=== PATIENT | female | born 1965 | race Caucasian/White ===

== ENCOUNTER → 2016-07-14 | Outpatient (CLI) | payer OTHER | END | disposition home or self-care (01) | LOC: KCIC MAMMO 11:04 | DX: Z12.31 Encounter for screening mammogram for malignant neoplasm of breast (principal) | CPT/HCPCS: G0202; 77067 ==

== ENCOUNTER → 2016-07-14 | Outpatient (CLI) | payer OTHER ==
--- NOTE | 2016-07-14 12:20 | KCIC ---
PROCEDURE Two view chest radiograph. HISTORY Chronic cough, multiple courses of antibiotics prescribed. TECHNIQUE Two-view chest radiograph was obtained. COMPARISON None. FINDINGS The lungs are clear. The cardiopulmonary silhouette is within normal limits. There is no pleural effusion. Bony structures are intact. IMPRESSION No acute thoracic findings. Electronically signed by: Justin Mtz MD (Jul 14, 2016 12:18:38)
--- NOTE | 2016-07-14 12:24 | KCIC ---
PROCEDURE Sinus series. HISTORY Chronic sinusitis. Multiple rounds of antibiotics. TECHNIQUE Sinus series contains 3 images. COMPARISON None. FINDINGS No air-fluid level or definite wall sclerosis in the paranasal sinuses is apparent. Mild mucosal thickening in the left maxillary sinus is suspected. Postsurgical changes are noted in the right orbit. IMPRESSION Questionable mild mucosal thickening in the left maxillary sinus. Electronically signed by: Justin Mtz MD (Jul 14, 2016 12:23:50)
== END | disposition home or self-care (01) ==
LOC: KCIC 11:11
PROVIDERS: ATTEND Family Medicine
DX: J32.8 Other chronic sinusitis (principal); R05 Cough
CPT/HCPCS: 70220; 71020

== ENCOUNTER → 2016-07-26 | Outpatient (CLI) | payer OTHER ==
--- NOTE | 2016-07-26 15:54 | RAD ---
Ultrasound of the left breast 07/26/2016 Clinical history: Small nodular density seen in the left breast on a recent screening mammogram. Further evaluation with ultrasound was recommended. Technique: A Real-time ultrasound examination of the left breast at the 2:00 and 3:00 position was performed. Multiple images were obtained. Findings: Comparison is made to patient's mammogram dated 07/14/2016. A Left breast implant is again noted. No solid or cystic mass seen within the visualized portions of the left breast by ultrasound. The nodular density seen on the patient's mammogram does not have sonographic correlate. A repeat diagnostic mammogram of the left breast in 6 months is recommended to its document stability. Impression: No solid or cystic mass is seen within the visualized portions of the left breast by ultrasound. I would recharacterize the patient's mammogram as a BI-RADS Category 3 probably benign finding with a recommendation for a diagnostic mammogram of the left breast in 6 months to document stability of the small nodular area as outlined above. Patient information was entered into the reminder system with a target date for a mammogram of the left breast on January 25, 2017.
== END | disposition home or self-care (01) ==
LOC: KCIC US 15:33
PROVIDERS: ATTEND Specialist
DX: R92.8 Other abnormal and inconclusive findings on diagnostic imaging of breast (principal)
CPT/HCPCS: 76641

== ENCOUNTER → 2017-11-03 | Outpatient (CLI) | payer OTHER | END | disposition home or self-care (01) | LOC: KCIC DEXA 07:45 | DX: Z13.820 Encounter for screening for osteoporosis (principal); R92.8 Other abnormal and inconclusive findings on diagnostic imaging of breast; Z79.890 Hormone replacement therapy; Z78.0 Asymptomatic menopausal state | CPT/HCPCS: 77066; 77080; G0279 ==

== ENCOUNTER → 2017-12-29 | Outpatient (CLI) | payer OTHER ==
--- NOTE | 2017-12-29 13:01 | KCIC ---
EXAM: Cervical spine, 5 views; thoracic spine, 2 views; lumbar spine, 5 views. HISTORY: Pain. COMPARISON: None. FINDINGS: Cervical spine: Frontal, lateral, bilateral oblique, odontoid and flexion and extension views of the cervical spine are obtained. There is slight reversal of cervical lordosis at the upper mid cervical levels. There is minimal anterior endplate spurring at C5-C6. The vertebral bodies are normal in height and the disc spaces are preserved. There is slight facet arthropathy predominantly at the lower cervical levels. There is no abnormal motion between flexion and extension. Thoracic spine: 2 views of the thoracic spine are obtained. There is no listhesis. The vertebral bodies are normal in height and the disc spaces are preserved. There is no segmentation anomaly. Lumbar spine: Frontal, lateral, bilateral oblique and coned sacral views of the lumbar spine are obtained. There is degenerative endplate remodeling with disc space narrowing and facet arthropathy at L5-S1. There is minimal endplate remodeling at the remainder of the lumbar levels. There is minimal levocurvature centered at the thoracolumbar junction. There is a calcification within the abdomen measuring 1.3 cm to the right of midline. IMPRESSION: 1. No acute osseous finding. 2. Degenerative change involving the lumbar spine, primarily at L5-S1. 3. Degenerative change involving the cervical spine, primarily at C5-C6. Electronically signed by: Lory Burger MD (12/29/2017 12:58 PM) [place] [id number]
== END | disposition home or self-care (01) ==
LOC: KCIC 10:03
DX: M47.897 Other spondylosis, lumbosacral region (principal); M47.892 Other spondylosis, cervical region; M48.07 Spinal stenosis, lumbosacral region; M12.88 Other specific arthropathies, not elsewhere classified, other specified site
CPT/HCPCS: 72052; 72072; 72110

== ENCOUNTER 2018-10-19 10:24 | Day surgery (SDC) | payer OTHER ==
[~2018-10-19 10:24] MED LIST: ALPR0.5T PO; DICL75TA PO; ESTR1PAT31 TD; HYDROmorphone 2 MG/ML VIAL IV PRN; IV RINGERS,LACTATED 1000ML 1,000 ML IV SCH; LEVO137T3 PO; LIDOCAINE 1% PF 2 ML VIAL. ID PRN; LIDOCAINE WITH 8.4% SOD BICARB 3 ML DISP.SYRIN. INJ ONE; MORPHINE SULFATE 2 MG/ML VIAL. IV PRN; ONDANSETRON PF 4 MG/2 ML VIAL. IV PRN; PROCHLORPERAZINE 10 MG/2 ML VIAL. IV PRN; fentaNYL PF VIAL 100 MCG/2 ML VIAL IV PRN
[2018-10-19] MEDS ORDERED: BUPIVAC MPF-EPI 0.5%-1:200000 30 ML VIAL. ONE (13:06)
[2018-10-19] MEDS ORDERED: BUPIVACAINE MPF 0.5% 30 ML VIAL. ONE (13:36)
[2018-10-19] MEDS ORDERED: ISOSULFAN BLUE 50 MG/5 ML VIAL. SQ ONE ×2 (13:41→14:45)
--- NOTE | 2018-10-19 14:29 | RAD ---
Examination: SENTINEL NODE INJECTION History: Melanoma involving the skin overlying the right hip Comparison/Correlation: None Findings: Cleansing with Betadine swabs was performed about the melanoma lesion involving the skin overlying the right hip. A total of 1 mCi technetium 99m sulfur colloid in 4 nearly equal portions was administered intradermally at the 12:00, 3:00, 6:00, 9:00 positions about the melanoma lesion. Patient tolerated the procedure well without immediate comp occasions. Impression: Intradermal administration of technetium 99 M sulfur colloid about the melanoma lesion. Electronically signed by: Dell Saleh MD (10/19/2018 2:26 PM) [facility]
[2018-10-19] MEDS ORDERED: MIDAZOLAM HCL/PF 2 MG/2 ML VIAL. ONE (14:44)
[2018-10-19] MEDS ORDERED: fentaNYL PF VIAL 100 MCG/2 ML VIAL ONE (14:44)
[2018-10-19] MEDS ORDERED: LIDOCAINE 2% PF 5 ML VIAL. ONE (14:59)
[2018-10-19] MEDS ORDERED: ONDANSETRON PF 4 MG/2 ML VIAL. ONE (14:59)
[2018-10-19] MEDS ORDERED: DEXAMETHASONE SOD PHOS 20 MG/5 ML VIAL. ONE (14:59)
[2018-10-19] MEDS ORDERED: PROPOFOL 40 ML IV ONE (14:59)
[2018-10-19] MEDS ORDERED: BUPIVACAINE MPF 0.5% 30 ML VIAL. IJ ONE (14:59)
[2018-10-19] MEDS ORDERED: SEVOFLURANE 61 TO 120 MINUTES. IH ONE (15:30)
--- NOTE | 2018-10-19 16:00 | DISCH ---
DISCHARGE INSTRUCTIONS Condition on Discharge Condition on Discharge: Stable Activity After Discharge Activity Instructions for Disc: Activity as tolerated, Avoid exertion Driving Instructions after Dis: Do not drive today Diet after Discharge Diet after Discharge: Regular Wound Incision Care Wound/Incision Care: Ice to area for comfort Other wound/incision instructi: jaden shower Monday Follow-Up Follow Up With: Jb ten days SARAH ROBERTS MD Oct 19, 2018 16:00
--- NOTE | 2018-10-19 16:06 | PDOC ---
BRIEF OPERATIVE NOTE Date: Oct 19, 2018 Pre-Op Diagnosis melanoma right thigh Post-Op Diagnosis same Procedure Performed wide excision with SLN biopsy Surgeon Jb Anesthesia Type: General (LMA) Blood Loss 5cc IV Fluid 1000cc Specimens Obtained left inguinal sentinel lymph node skin and subcutaneous tissue right upper thigh 12x4x2 cm Findings negative SLN Complications none Operative Note Wk # [id number] SARAH ROBERTS MD Oct 19, 2018 16:06
[2018-10-19] MEDS: fentaNYL PF VIAL 100 MCG/2 ML VIAL IV PRN ×2 (16:14→16:29)
[2018-10-19] MEDS ORDERED: OXYC1TAB15 PO (16:15)
[2018-10-19] MEDS ORDERED: DOCU-150 PO (16:23)
[2018-10-19 16:26] VITALS: BP 148/71
[2018-10-19] MEDS ORDERED: oxyCODONE/APAP 5/325 1 TAB TABLET PO ONE (16:30)
--- NOTE | 2018-10-19 16:44 | OP ---
DATE OF SURGERY: 10/19/2018 PREOPERATIVE DIAGNOSIS: Melanoma, right thigh. POSTOPERATIVE DIAGNOSIS: Melanoma, right thigh. PROCEDURE: Wide excision with sentinel lymph node biopsy. SURGEON: Sarah Roberts M.D. ANESTHESIA: General LMA. ESTIMATED BLOOD LOSS: 5. INTRAVENOUS: A liter. INDICATIONS: The patient is a 53-year-old with biopsy proven melanoma, right thigh, brought for wide excision and sentinel node biopsy. OPERATIVE REPORT: The patient went to the nuclear medicine suite where she received injection around the biopsy site for sentinel node identification. She was then brought to the OR, given a general LMA and the right groin and leg were prepped and draped in usual sterile fashion. A 2 mL of Lymphazurin were injected intradermally on the medial aspect of the previous biopsy site and it was gently massaged. Using the C-Trak as a guide, a small incision was made in the groin after infiltrating local anesthetic. Dissection carried down to a blue "hot" node, which was harvested and sent to pathology for frozen section. While awaiting those results, the wide excision was carried out by applying the incision to allow adequate margins (2 cm) has had been marked preoperatively with the patient's assistance. Local anesthetic infiltrated. Skin incision was made in the skin and subcutaneous tissue down to the fascia were excised en bloc. Hemostasis with cautery. The wound was closed with interrupted inverted 2-0 Vicryl in the subcutaneous tissue and a subcuticular 4-0 Monocryl for the skin. Report from pathology showed a negative sentinel node. Groin incision closed with interrupted 3-0 Vicryl in the subcutaneous tissue and a subcuticular 4-0 Monocryl for the skin. Steri-Strips and sterile dressings applied. The patient awakened from her anesthetic and taken to the recovery room in satisfactory condition. SARAH ROBERTS MD DR: SOLE/justin JOB#: [id number] / [id number]
--- NOTE | 2018-10-26 15:07 | PATHOLOGY ---
[facility] Accession Number: [id number] . 01 Material submitted: . PART A: lymph node - RIGHT INGUINAL SENTIEL NODE - FS. Modifiers: right, inguinal PART B: thigh - SKIN SUBCUTANEOUS TISSUE RIGHT UPPER THIGH. Modifiers: right, upper . 01 Clinical history: . Amelanocytic melanoma . 02 Frozen section diagnosis: . INTRAOPERATIVE CONSULTATION WITH FROZEN SECTION: FSA1. Right inguinal sentinel lymph node: - Negative for tumor. . The results are reported to Dr. Muhammad in the operating room. (JPM:mml; 10/19/2018) . . FROZEN SECTION GROSS DESCRIPTION: A. Received fresh for intraoperative frozen section and is designated, "Ab Duran - Right inguinal sentinel node", is an ovoid pink pale yellow lymph node with focally attached yellow-red perinodal fatty tissue, measuring up to 2.8 cm in length and 1.1 cm in width. There is focal bluish discoloration at one end. The specimen is bisected. The cut surface is pink to pale yellowish-burr with focal bluish discoloration at one end. One-half of the lymph node is submitted for frozen section as FSA1. The tissue remaining from frozen section is submitted for permanent section as A1. The remainder of the specimen is submitted for microscopy as A2. (JPM:mml; 10/19/2018) . Frozen section performed at [facility], [address] [place] [address], [place] [address]. ELTON/JUAN F . 03 Diagnosis: A. [place] lymph node, right inguinal, biopsy: - ONE LYMPH NODE WITH METASTATIC MALIGNANT MELANOMA (04/17). - Metastatic focus measures 2 mm in greatest dimension and does not exhibit extracapsular spread. . B. Skin, right upper thigh, wide excision: - No evidence of residual invasive malignant melanoma. 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 - Previous biopsy site present. . (Please see comment) . (SKM:mmcecelia; 10/26/2018) QLM/10/26/2018 . 03 Comment: One-half of the sentinel lymph node (Part A) was frozen for immediate intraoperative consultation. No evidence of malignant melanoma was seen on the initial and permanent section or with the Melan-A red and S100 immunoperoxidase stains. However, the other half of the sentinel lymph node (part A), which was not frozen, contained a 2 mm focus of metastatic malignant melanoma which is highlighted with the MART-1 and S100 immunoperoxidase stains. . No evidence of residual invasive malignant melanoma is seen. . Dr. Karen Davies has reviewed slide B7 of this case and agrees with the diagnosis of focal malignant melanoma in situ. . (SKM:mmcecelia; 10/26/2018) . 03 Electronically signed: . Eduardo Figueredo MD, Pathologist NPI- [id number] . 01 Gross description: . A. SEE FROZEN SECTION GROSS DESCRIPTION: . . B. The specimen is received in formalin, labeled "Ab Duran, skin, subcutaneous tissue, right upper thigh, suture at medial aspect", is an oriented ellipse of burr-white and wrinkled skin measuring 8.0 x 3.0 cm, excised to a maximum depth of 2.0 cm. The specimen is oriented with a suture at one tip designated as medial. This is arbitrarily designated as 12:00 and the specimen is inked as follows: 12:00 to 3:00 = green, 3:00 to 6:00 = blue and 6:00 to 12:00 including deep = black. The skin surface is diffusely covered by purple dye and has a centrally located, longitudinal healing wound measuring 0.6 x 0.1 cm that is 1.5 cm from the nearest 9:00 margin. The specimen is serially sectioned from 12:00 to 6:00 (medial to lateral) and into 19 pieces (piece 1 = 12:00 tip and piece 19 = 6:00 tip). The previous procedure site is in piece 8 to 10, that appears to confined to the dermis. The underlying subcutaneous parenchyma is predominantly composed of yellow lobulated adipose tissue with few huggins-white fibrous strands interspersed. Representatively submitted as follows: B1. 12:00 tip, medial. B2-B3. Piece 7, bisected. (uninvolved on the medial aspect) B4-B5. Piece 8, bisected. (previous procedure site, medial most aspect) B6-B7. Piece 9, bisected. (Previous procedure site) B8-B9. Piece 10, bisected. (Previous procedure site, lateral most aspect) B10-B11. Piece 11, bisected. (Uninvolved on the lateral aspect) B12. 6:00 tip, lateral. ([facility]; 10/23/2018) [facility]M . 03 Pathologist provided ICD-10: C77.4 . 03 CPT . 416243, 941691, 384886, [id number], [id number] Specimen Comment: A courtesy copy of this report has been sent to Specimen Comment: [phone], . Specimen Comment: Report sent to / DR GEORGE Performed at: 01 [facility] [address] [id number] MD Ian Arriola MD Phone: [phone] Performed at: 02 [facility] [address] [place], [place] [id number] MD Sourav Rodas MD Phone: [phone] Performed at: 03 [facility] [address] [id number] MD Brett Angel MD Phone: [phone]
== END 2018-10-19 17:00 | disposition home or self-care (01) ==
LOC: SURG 10:24
PROVIDERS: ATTEND Surgery
DX: C43.71 Malignant melanoma of right lower limb, including hip (principal); C77.4 Secondary and unspecified malignant neoplasm of inguinal and lower limb lymph nodes; E03.9 Hypothyroidism, unspecified; D64.9 Anemia, unspecified; Z85.820 Personal history of malignant melanoma of skin; Z90.710 Acquired absence of both cervix and uterus; Z98.890 Other specified postprocedural states; Z72.89 Other problems related to lifestyle; Z88.6 Allergy status to analgesic agent; Z88.1 Allergy status to other antibiotic agents; Z88.5 Allergy status to narcotic agent; Z88.8 Allergy status to other drugs, medicaments and biological substances
CPT/HCPCS: 27327; 38531; 38792; 88305; 88307; 88331; 88341; 88342; 96374; A7015; A9541; J0690; J1100; J2001; J2250; J2405; J2704; J3010; J3490; J7120; Q9968

== ENCOUNTER → 2018-11-06 | Outpatient (CLI) | payer OTHER ==
[2018-10-19 16:26] VITALS: BP 148/71
[~2018-11-06] MED LIST changes: +DOCU-150 PO; +GADOTERATE 7.5 MMOL/15ML VIAL. IVP ONE; -HYDROmorphone 2 MG/ML VIAL IV PRN; -IV RINGERS,LACTATED 1000ML 1,000 ML IV SCH; -LIDOCAINE 1% PF 2 ML VIAL. ID PRN; -LIDOCAINE WITH 8.4% SOD BICARB 3 ML DISP.SYRIN. INJ ONE; -MORPHINE SULFATE 2 MG/ML VIAL. IV PRN; -ONDANSETRON PF 4 MG/2 ML VIAL. IV PRN; +OXYC1TAB15 PO; -PROCHLORPERAZINE 10 MG/2 ML VIAL. IV PRN; -fentaNYL PF VIAL 100 MCG/2 ML VIAL IV PRN
--- NOTE | 2018-11-06 11:09 | KCIC ---
BRAIN WO/W CONTRAST Date: 11/06/2018 8:45 AM Indication: Metastatic melanoma Comparison: None. Technique: Multiplanar multisequence MRI of the brain was performed with and without intravenous contrast using the standard protocol. 15 cc Dotarem contrast was administered intravenously during the exam. Findings: No acute infarct. No acute or chronic hemorrhage. The ventricles are normal in size and configuration without hydrocephalus. Minimal scattered FLAIR hyperintensities in the subcortical and periventricular deep white matter, a nonspecific finding, appropriate for patient age. No abnormal enhancement. The scalp and calvarium are normal. The pituitary and sella are normal. No Chiari malformation. The visualized upper cervical spine is normal. The visualized orbits and globes are normal. The visualized paranasal sinuses are clear. The mastoid air cells are clear. Normal flow voids within the vertebral, basilar, and internal carotid arteries indicating patency. IMPRESSION: No evidence of intracranial metastatic disease. Electronically signed by: Hemal Funk MD (11/06/2018 11:06 AM) [facility]
== END | disposition home or self-care (01) ==
LOC: KCIC MRI 08:23
PROVIDERS: ATTEND Internal Medicine Hematology & Oncology
DX: C43.71 Malignant melanoma of right lower limb, including hip (principal); C77.9 Secondary and unspecified malignant neoplasm of lymph node, unspecified; Z88.2 Allergy status to sulfonamides
CPT/HCPCS: 70553; A9575

== ENCOUNTER → 2018-12-26 | Outpatient (CLI) | payer OTHER ==
[~2018-12-26] MED LIST changes: -GADOTERATE 7.5 MMOL/15ML VIAL. IVP ONE
--- NOTE | 2018-12-26 11:06 | CARD ---
MR#: [id number] Date of Study: 12/26/2018 Ordering Physician: DIANA GEORGE, Referring Physician: DIANA GEORGE Tech: Bozena Montano RDCS APPROVED REPORT EXAM: LIMITED Two-dimensional echocardiogram Other Information Quality : Good INDICATION LV Function:Systolic Melanoma 2D DIMENSIONS RVDd2.3 (2.9-3.5cm)Left Atrium(2D)2.3 (1.6-4.0cm) IVSd0.9 (0.7-1.1cm)Aortic Root(2D)3.2 (2.0-3.7cm) LVDd4.6 (3.9-5.9cm)LVOT Diameter2.0 (1.8-2.4cm) PWd0.8 (0.7-1.1cm)LVDs2.9 (2.5-4.0cm) FS (%) 38.1 %SV68.1 ml LVEF(%)60.0 (>50%) LEFT VENTRICLE Limited ECHO to evaluate LV function. The left ventricle is normal size. There is normal left ventric ular wall thickness. The left ventricular systolic function is normal and the ejection fraction is wi thin normal range. The Ejection Fraction is 55-60%. There is normal LV segmental wall motion. RIGHT VENTRICLE The right ventricle is normal size. The right ventricular systolic function is normal. ATRIA The left atrium size is normal. The right atrium size is normal. The interatrial septum is intact wit h no evidence for an atrial septal defect or patent foramen ovale as noted on 2-D or Doppler imaging. AORTIC VALVE The aortic valve is normal in structure. MITRAL VALVE The mitral valve is normal in structure. TRICUSPID VALVE The tricuspid valve is normal in structure. PULMONIC VALVE The pulmonic valve is not well visualized. Critical Notification Critical Value: No <Conclusion> Limited ECHO to evaluate LV function. The left ventricle is normal size. The left ventricular systolic function is normal and the ejection fraction is within normal range. The Ejection Fraction is 55-60%. There is normal LV segmental wall motion. Signed by : Kevin Minaya MD Electronically Approved : 12/26/2018 11:06:07
== END | disposition home or self-care (01) ==
LOC: ECHO 09:52
PROVIDERS: ATTEND Internal Medicine Hematology & Oncology
DX: C43.70 Malignant melanoma of unspecified lower limb, including hip (principal); Z88.1 Allergy status to other antibiotic agents; Z91.041 Radiographic dye allergy status; Z88.8 Allergy status to other drugs, medicaments and biological substances
CPT/HCPCS: 93308

== ENCOUNTER → 2019-02-21 | Outpatient (CLI) | payer OTHER ==
[~2019-02-21] MED LIST changes: +IOHEXOL 240 MG/ML 50ML VIAL. PO ONE; +IOHEXOL 300 MG/ML 100ML VIAL. IV ONE
--- NOTE | 2019-02-21 13:01 | KCIC ---
EXAM: Pelvic sonogram. HISTORY: Malignant melanoma of the lower extremity. TECHNIQUE: Sonographic imaging of the pelvis was performed. COMPARISON: PET/CT dated 11/15/2018. FINDINGS: The uterus and right ovary are surgically absent. The left ovary is not seen. The vaginal cuff is unremarkable. There is no pelvic free fluid or adnexal mass or cyst. IMPRESSION: 1. Surgically absent uterus and right ovary. 2. Nonvisualization of the left ovary. Electronically signed by: Lory Burger MD (02/21/2019 12:58 PM) [place] [id number]
--- NOTE | 2019-02-21 16:40 | KCIC ---
CT of the chest, abdomen, and pelvis with contrast Indication: [Melanoma] Comparison study: [None] Technique: Multidetector CT imaging of the chest none abdomen and pelvis was performed following the administration of intravenous contrast. Findings: There is no evidence of filling defect within central pulmonary arteries or other evidence of acute pulmonary embolism. Heart size is normal. No significant pericardial effusion is seen. No pathologic mediastinal adenopathy is identified. No focal consolidation or infiltrate is seen. No pneumothorax or pleural effusion is seen. No acute osseous abnormality is identified. Limited visualization of the upper abdomen demonstrates no acute abnormality. The liver, gallbladder, bilateral adrenal glands,and pancreas, are grossly unremarkable. Punctate renal hypodensities are noted likely small cysts, but too small characterize by CT. Punctate hypodensity in the spleen is also noted, again too small to characterize. There is no bowel obstruction. No evidence of acute inflammatory change involving visualized bowel is identified. Appendix is visualized and unremarkable in appearance. Bladder is grossly unremarkable. No free fluid or free air is seen in the abdomen or pelvis. No acute osseous changes are identified. Impression: No evidence of acute cardiopulmonary or intra-abdominal abnormality is seen CT DOSING PQRS STATEMENT: One or more of the following individualized dose reduction techniques were utilized for this examination: 1. Automated exposure control 2. Adjustment of the mA and/or kV according to patient size 3. Use of iterative reconstruction technique Electronically signed by: Kasi Napier MD (02/21/2019 4:37 PM) [facility]
== END | disposition home or self-care (01) ==
LOC: KCIC CT 14:00
PROVIDERS: ATTEND Internal Medicine Hematology & Oncology
DX: C43.70 Malignant melanoma of unspecified lower limb, including hip (principal); Z88.1 Allergy status to other antibiotic agents; Z88.5 Allergy status to narcotic agent; Z88.8 Allergy status to other drugs, medicaments and biological substances; Z90.721 Acquired absence of ovaries, unilateral
CPT/HCPCS: 71260; 74177; 76856; Q9966; Q9967

== ENCOUNTER → 2019-02-21 | Outpatient (CLI) | payer OTHER ==
[~2019-02-21] MED LIST changes: -IOHEXOL 240 MG/ML 50ML VIAL. PO ONE; -IOHEXOL 300 MG/ML 100ML VIAL. IV ONE
--- NOTE | 2019-02-21 17:07 | KCIC ---
Bilateral digital screening mammograms with 3-D tomosynthesis: Reason for examination: Routine screening. Comparison is made to previous studies dated 11/03/2017 and 07/14/2016. Bilateral mammograms in CC and oblique projections were obtained with 2-D imaging and 3-D tomosynthesis imaging on a Siemens Inspiration unit and reviewed on the workstation. Interpretation was made with the benefit of CAD. The skin and nipples show no abnormalities. No abnormal axillary lymph nodes are seen. Bilateral breast implants remain present. The breast parenchyma is heterogeneously dense. (Breast density: Category C.) There continues to be some mild asymmetry in the anterior superior left breast on oblique view. There are no new dominant masses, suspicious calcifications or architectural distortion. Impression: No evidence of malignancy. Recommend routine screening. Your patient's mammogram demonstrates that she has dense breast tissue (breast density category C or D), which could hide abnormalities, and if she has other risk factors for breast cancer that have been identified, she might benefit from supplemental screening tests that may be suggested by you as her ordering physician. Dense breast tissue, in and of itself, is a relatively common condition. Therefore, this information is not provided to cause undue concern, but rather to raise your awareness and to promote discussion with your patient regarding the presence of other risk factors, in addition to dense breast tissue. Your patient's mammography results will be sent to her. BI-RAD Category 2: Benign. "Our facility is accredited by the [employer] Mammography Program." This patient's information has been entered into a reminder system for the patient to be notified with the results of her examination and a target date for the next mammogram. Electronically signed by: Aurelia Gross MD (02/21/2019 5:04 PM) [facility]
== END | disposition home or self-care (01) ==
LOC: KCIC MAMMO 11:58
PROVIDERS: ATTEND Internal Medicine Hematology & Oncology
DX: Z12.31 Encounter for screening mammogram for malignant neoplasm of breast (principal); Z98.82 Breast implant status
CPT/HCPCS: 77063; 77067

== ENCOUNTER → 2019-03-21 | Outpatient (CLI) | payer OTHER ==
--- NOTE | 2019-03-21 16:33 | RAD ---
RIGHT GROIN SONOGRAPHY Clinical indications: Right groin metastatic disease involving lymph node. History of melanoma of the right lower extremity Right groin lymph node removed on October 19, 2018 and was positive for malignancy. Patient receiving chemotherapy. FINDINGS: Sonography of the right groin was performed. There is a lymph node measuring 27 mm in greatest dimension. The cortex measures 3.9 mm in thickness. This is mildly thickened. Central echogenic hilus is evident however. Smaller lymph nodes are seen in the right groin area which demonstrate normal sonographic lymph node architecture. IMPRESSION: There is an enlarged right groin lymph node measuring up to 27 mm. The cortex is mildly thickened measuring up to 3.9 mm. Therefore, this may be abnormal and metastatic disease involving this lymph node node is possible. Electronically signed by: Vidal Jones MD (03/21/2019 4:30 PM) [facility]
== END | disposition home or self-care (01) ==
LOC: US 10:04
PROVIDERS: ATTEND Internal Medicine Hematology & Oncology
DX: C77.4 Secondary and unspecified malignant neoplasm of inguinal and lower limb lymph nodes (principal); C43.71 Malignant melanoma of right lower limb, including hip
CPT/HCPCS: 76881

== ENCOUNTER → 2019-03-29 | Outpatient (CLI) | payer OTHER ==
--- NOTE | 2019-03-29 15:06 | RAD ---
Examination: PET W CT WHOLE BODY History: Melanoma Comparison/Correlation: [place] 2017 CT chest abdomen and pelvis with contrast, 11/15/2018 PET-CT Skull base-Thighs Mart, 11/08/2018 PET-CT Whole Body FINDINGS: Net dose 16 mCi F-18 FDG was administered intravenously for purposes of whole body PET/CT exam. Blood glucose level at the time of radiotracer administration was 135 mg/dL. Hepatic reference uptake is SUV max of 2.7 . Visualized head and neck are unremarkable. Chest is unremarkable with no suspicious infiltrates. No suspicious pulmonary nodules or effusions. Bilateral breast implants are present. Calcific density about the intersegmental fissure inferiorly is noted. Gallbladder fossa is unremarkable. No radiopaque collecting system calculi. No enlarged abdominal or pelvic lymph nodes. Urinary bladder is decompressed. There is a focus of intense uptake at the anterior aspect of the left lower pelvic region with SUV max of 13 but no suspicious associated mass. This may extend radiotracer within the decompressed urinary bladder anteriorly. It is not contiguous with uptake of radiotracer within the urinary bladder itself. Uptake involving the lower extremities is unremarkable. Moderate-sized bilateral knee joint effusions noted. Postoperative findings involving the right first digit and first metatarsal bone proximally noted. IMPRESSION: No definite abnormal attenuation radiotracer to suggest metastasis or lymphadenopathy. Uptake involving the left low pelvis anteriorly probably relates to radiotracer within the decompressed urinary bladder at its anterior aspect. No mass or other suspicious finding on CT images at this level. Bilateral knee joint effusions. PQRS Compliance Statement: One or more of the following individualized dose reduction techniques were utilized for this examination: 1. Automated exposure control 2. Adjustment of the mA and/or kV according to patient size 3. Use of iterative reconstruction technique Electronically signed by: Dell Saleh MD (03/29/2019 3:03 PM) [facility]
== END | disposition home or self-care (01) ==
LOC: PETSC 11:59
PROVIDERS: ATTEND Internal Medicine Hematology & Oncology
DX: C43.70 Malignant melanoma of unspecified lower limb, including hip (principal); M25.462 Effusion, left knee; M25.461 Effusion, right knee
CPT/HCPCS: 78816; A9552

== ENCOUNTER → 2019-06-18 | Outpatient (CLI) | payer OTHER ==
[~2019-06-18] MED LIST changes: +IOHEXOL 240 MG/ML 50ML VIAL. PO ONE; +IOHEXOL 300 MG/ML 100ML VIAL. IV ONE
--- NOTE | 2019-06-18 13:16 | KCIC ---
CT CHEST ABD PELVIS W/CONTRAST Indication: Melanoma to left lower extremity Technique: Postcontrast CT imaging was performed of the chest, abdomen, pelvis, multiplanar reconstruction images submitted. Oral contrast was also given. One or more of the following individualized dose reduction techniques were utilized for this examination: 1. Automated exposure control 2. Adjustment of the mA and/or kV according to patient size 3. Use of iterative reconstruction technique. Comparison: March 29, 2019 PET/CT; CT exams February 21, 2019 CHEST: Findings: There is no new focal pulmonary nodularity. There is no new significant chest lymphadenopathy. There is new mild left lower lobe infiltrate near the base, also mild dependent density of the right lower lobe which may be component of atelectasis, also a few small foci of somewhat groundglass infiltrate of the right middle lobe. There is no pleural or pericardial fluid or pneumothorax. IMPRESSION: 1. There is no new discrete pulmonary nodularity, new mild left lower lobe infiltrate and also small foci of parenchymal density of the right middle lobe which could be atelectasis or mild infiltrate and also likely mild atelectasis dependently of the right lower lobe. Abdomen pelvis FINDINGS: There are again some clustered calcifications along the left lobe of the liver, no new focal lesion identified of the liver. There is again suspected hepatic steatosis. No new focal abnormality is identified of the pancreas or spleen. Gallbladder is present without obvious intraluminal abnormality by CT. Both kidneys enhance, no hydronephrosis. Small 0.4 cm hypodense lesion of the inferior left kidney and small 0.3 cm hypodense lesion of the superior left kidney are unchanged. There is no adrenal nodularity. No new significantly enlarged nodes are identified of the abdomen or pelvis. There are some fat-containing inguinal nodes bilaterally as seen previously. There is no new free fluid or free air. Bowel is not dilated. Normal caliber appendix is visualized. There is L5-S1 degenerative disc disease. IMPRESSION: 1. No new abnormality is identified of the abdomen or pelvis. There is again suspected hepatic steatosis. Electronically signed by: Hemal Narayanan MD (06/18/2019 1:13 PM) [id number]
--- NOTE | 2019-06-18 14:40 | KCIC ---
Sonography of the right groin and hip area Clinical indications: Metastatic melanoma to lymph node of right groin. Malignant melanoma of the right hip area. FINDINGS: High-resolution sonography of the right groin and right hip area and upper anterior right thigh area was performed. Within the lateral right hip area, there is a lymph node measuring 9 mm in greatest dimension. This lymph node demonstrates normal lymph node sonographic architecture and the cortex measures 2 mm in thickness which is normal. Within the right groin, there are 2 lymph nodes present. Smaller lymph node measures 10 mm in size and the larger lymph node measures 15 mm in size. Both lymph nodes demonstrate normal lymph node sonographic architecture and the cortex measures less than 2 mm within either lymph node. Within the anterior upper thigh, a lymph node is seen measuring 32 mm in greatest dimension. An echogenic central fatty hilus is seen throughout most of the lymph node.. The cortex measures 2 mm or less in thickness throughout most of the lymph node. However within the inferior aspect of this lymph node, a focal hypoechoic solid area is seen measuring 7 mm in greatest dimension. Early metastatic tumor infiltration of this lymph node is possible therefore. IMPRESSION: Upper anterior right thigh lymph node is seen measuring up to 32 mm in greatest dimension. There is a peripheral focal hypoechoic solid area within the inferior aspect of this lymph node measuring 7 mm in greatest dimension. Early metastatic tumor infiltration of this lymph node is possible therefore. Electronically signed by: Vidal Jones MD (06/18/2019 2:37 PM) [facility] [place]
== END | disposition home or self-care (01) ==
LOC: KCIC CT 08:06
PROVIDERS: ATTEND Internal Medicine Hematology & Oncology
DX: C77.9 Secondary and unspecified malignant neoplasm of lymph node, unspecified (principal); C43.70 Malignant melanoma of unspecified lower limb, including hip; M51.37 Other intervertebral disc degeneration, lumbosacral region
CPT/HCPCS: 71260; 74177; 76882; Q9966; Q9967

== ENCOUNTER → 2019-06-21 | Outpatient (CLI) | payer OTHER ==
[~2019-06-21] MED LIST changes: -IOHEXOL 240 MG/ML 50ML VIAL. PO ONE; -IOHEXOL 300 MG/ML 100ML VIAL. IV ONE; +OXYC-325 PO
[2019-06-21 11:06] LABS: FREE T4 1.49 ng/dL (0.76-1.46); THYROID STIM HORMONE (TSH) 0.409 uIU/mL (0.358-3.74)
== END | disposition home or self-care (01) ==
LOC: LAB 09:57
PROVIDERS: ATTEND Internal Medicine Hematology & Oncology
DX: C43.70 Malignant melanoma of unspecified lower limb, including hip (principal); C77.9 Secondary and unspecified malignant neoplasm of lymph node, unspecified
CPT/HCPCS: 36415; 84439; 84443

== ENCOUNTER 2019-06-25 07:41 | Day surgery (SDC) | payer OTHER ==
[~2019-06-25] VITALS: Ht 165.1 cm; Wt 58.0 kg
[~2019-06-25 07:41] MED LIST changes: +IV RINGERS,LACTATED 1000ML 1,000 ML IV SCH; +LIDOCAINE 1% PF 2 ML VIAL. ID PRN; +ONDANSETRON PF 4 MG/2 ML VIAL. IV PRN; -OXYC-325 PO; +PROCHLORPERAZINE 10 MG/2 ML VIAL. IV PRN; +ceFAZolin SODIUM IV Push 1 GM VIAL. IVP ONE; +fentaNYL PF VIAL 100 MCG/2 ML VIAL IV PRN
[2019-06-25] MEDS ORDERED: PROPOFOL 20 ML IV ONE (08:33)
[2019-06-25] MEDS ORDERED: MIDAZOLAM HCL/PF 2 MG/2 ML VIAL. ONE (08:33)
[2019-06-25] MEDS ORDERED: ONDANSETRON PF 4 MG/2 ML VIAL. ONE (08:33)
[2019-06-25] MEDS ORDERED: LIDOCAINE 2% PF 5 ML VIAL. ONE (08:33)
[2019-06-25] MEDS ORDERED: DEXAMETHASONE SOD PHOS 4 MG/ML VIAL ONE (08:33)
[2019-06-25] MEDS ORDERED: GLYCOPYRROLATE 1 MG/5 ML VIAL. ONE (08:37)
[2019-06-25] MEDS ORDERED: BUPIVACAINE-EPI 0.5%-1:200000 MPF 30 ML VIAL. ONE (09:15)
[2019-06-25] MEDS ORDERED: BUPIVACAINE MPF 0.5% 30 ML VIAL. ONE (09:23)
[2019-06-25] MEDS ORDERED: fentaNYL PF VIAL 100 MCG/2 ML VIAL ONE (09:45)
[2019-06-25] MEDS ORDERED: SEVOFLURANE 16 TO 30 MINUTES. IH ONE (09:59)
--- NOTE | 2019-06-25 10:08 | PDOC ---
BRIEF OPERATIVE NOTE Date: Jun 25, 2019 Pre-Op Diagnosis basal cell, chest Post-Op Diagnosis same Procedure Performed excision Surgeon Jb Anesthesia Type: General (LMA) Blood Loss <5 cc IV Fluid 400cc Specimens Obtained skin and subcutaneous tissue, chest 2.5x1.5x0.5 cm Findings scar from previous biopsy Complications none Operative Note WK # [id number] SARAH ROBERTS MD Jun 25, 2019 10:08
--- NOTE | 2019-06-25 10:10 | DISCH ---
DISCHARGE INSTRUCTIONS Condition on Discharge Condition on Discharge: Stable Activity After Discharge Activity Instructions for Disc: Activity as tolerated, Avoid exertion Lifting Instructions after Dis: No heavy lifting Driving Instructions after Dis: Do not drive today Diet after Discharge Diet after Discharge: Regular Wound Incision Care Wound/Incision Care: Ice to area for comfort Follow-Up Follow up with: Jb next week SARAH ROBERTS MD Jun 25, 2019 10:10
--- NOTE | 2019-06-25 10:13 | OP ---
DATE OF SURGERY: 06/25/2019 PREOPERATIVE DIAGNOSIS: Basal cell chest. POSTOPERATIVE DIAGNOSIS: Basal cell chest. PROCEDURE: Excision of same. SURGEON: Sarah Roberts MD ANESTHESIA: General LMA. SPECIMEN: Skin and subcutaneous tissue of chest, 2.5 x 1.5 x 0.5 cm. INDICATIONS: The patient is a 54-year-old with a previous punch biopsy showing basal cell with involved margins. She is here for excision. DESCRIPTION OF PROCEDURE: The patient was brought to the operating suite, given a general LMA and the chest prepped and draped in usual sterile fashion. The elliptical incision, which had been outlined in the preoperative area with the patient's assistance was infiltrated with local anesthetic, incised and the specimen removed intact using a nylon suture at 3 o'clock for orientation. Hemostasis with cautery. Wound closed with interrupted inverted 3-0 Vicryl followed by subcuticular 4-0 Monocryl. Steri-Strips and sterile dressing applied. The patient awakened from her anesthetic and taken to the recovery room in satisfactory condition. SARAH ROBERTS MD DR: SOLE/justin JOB#: [id number] / [id number]
[2019-06-25] MEDS ORDERED: oxyCODONE/APAP 5/325 1 TAB TABLET PO ONE (10:15)
[2019-06-25] MEDS ORDERED: OXYC-325 PO (10:15)
[2019-06-25 10:34] VITALS: BP 126/60
--- NOTE | 2019-06-26 18:06 | PATHOLOGY ---
[facility] Accession Number: [id number] . 01 Material submitted: . chest - SKIN AND SUBUCTANEOUS TISSUE RIGHT CHEST, SUTURE 3:00. Modifiers: right . 01 Clinical history: . basal cell . 02 Diagnosis: Skin and subcutaneous tissue, right chest excision: - Focal residual superficial basal cell carcinoma - inked margins of excision free of neoplasm. - Previous biopsy site showing scarring and focal foreign body giant cell reaction. . (JPM:mml; 06/26/2019) [facility] 06/26/2019 1343 Local . 02 Electronically signed: . Sourav Rodas MD, Pathologist NPI- [id number] . 01 Gross description: . The specimen is received in formalin labeled "Ab Duran, skin and subcutaneous tissue right chest suture 3:00" and consists of an oriented skin ellipse measuring 2.7 x 1.0 x 0.7 cm with a suture at one tip designating 3:00. Present on the surface is a possible well healed previous biopsy site/scar measuring 0.6 x 0.5 cm that is 0.2 cm from the nearest peripheral edge (12:00). It is inked as follows: 3-6:00 yellow, 6-9:00 blue, and 9-12-3 o'clock black. It is serially sectioned and entirely submitted in A1-A3 with tips in A3. (SDY; 06/25/2019) SYU/SYU 06/25/2019 1654 Local . 02 Pathologist provided ICD-10: C44.519, L90.5 . 02 CPT . 215362 Specimen Comment: A courtesy copy of this report has been sent to [phone] Specimen Comment: Report sent to Dr. Ware Performed at: 01 [facility] [address], [place], [place] [id number] MD Ian Arriola MD Phone: [phone] Performed at: 02 [facility] [address] [place], [place] [id number] MD Sourav Rodas MD Phone: [phone]
[2019-07-10] MEDS ORDERED: CITA20TA9 PO (10:02)
[2019-07-10] MEDS ORDERED: FAMO40TA4 PO (10:02)
== END 2019-06-25 11:38 | disposition home or self-care (01) ==
LOC: SURG 07:41
PROVIDERS: ATTEND Surgery
DX: C44.519 Basal cell carcinoma of skin of other part of trunk (principal); E03.9 Hypothyroidism, unspecified; G25.81 Restless legs syndrome; Z90.710 Acquired absence of both cervix and uterus; Z98.890 Other specified postprocedural states; Z79.899 Other long term (current) drug therapy; Z88.1 Allergy status to other antibiotic agents; Z88.6 Allergy status to analgesic agent; Z88.8 Allergy status to other drugs, medicaments and biological substances; Z82.49 Family history of ischemic heart disease and other diseases of the circulatory system
CPT/HCPCS: 11603; A7015; J0690; J1100; J2001; J2250; J2405; J2704; J3010; J3490; 88305

== ENCOUNTER → 2019-07-10 | Outpatient (CLI) | payer OTHER ==
[~2019-07-10] VITALS: Ht 165.1 cm; Wt 56.7 kg
[~2019-07-10] MED LIST changes: +CITA20TA9 PO; +FAMO40TA4 PO; +KETAMINE HCL IN NACL, ISO-OSM 50 MG/5 ML SYRINGE ONE; +LIDOCAINE WITH 8.4% SOD BICARB 3 ML DISP.SYRIN. INJ ONE; +LIDOCAINE WITH 8.4% SOD BICARB 3 ML DISP.SYRIN. ONE; +MIDAZOLAM HCL/PF 2 MG/2 ML VIAL. ONE; +OXYC-325 PO; -ceFAZolin SODIUM IV Push 1 GM VIAL. IVP ONE; +fentaNYL PF VIAL 250 MCG/5 ML VIAL ONE
[2019-07-10 10:10] VITALS: BP 150/82
[2019-07-10 10:14] LABS: BASO % 1 % (0-3); EOS # 0.1 x10^3/uL (0.0-0.7); EOS % 2 % (0-3); HEMATOCRIT 43.4 % (36.0-47.0); HEMOGLOBIN 14.6 g/dL (12.0-15.5); LYMPH # 1.2 x10^3/uL (1.0-4.8); LYMPH % 23 % (24-48); MEAN CORPUSCULAR HEMOGLOBIN 35 pg (25-35); MEAN CORPUSCULAR HGB CONC 34 g/dL (31-37); MEAN CORPUSCULAR VOLUME 103 fL (79-100); MONO # 0.5 x10^3/uL (0.0-1.1); MONO % 10 % (0-9); NEUT # 3.4 x10^3/uL (1.8-7.7); NEUT % 65 % (31-73); PLATELET COUNT 248 x10^3/uL (140-400); RED BLOOD COUNT 4.23 x10^6/uL (3.50-5.40); RED CELL DISTRIBUTION WIDTH 14.9 % (11.5-14.5); WHITE BLOOD COUNT 5.2 x10^3/uL (4.0-11.0)
[2019-07-10 10:25] LABS: PROTHROMBIN TIME PATIENT 11.9 SEC (11.7-14.0)
--- NOTE | 2019-07-10 11:33 | NUR ---
sedation per anesthesia for procedure
[2019-07-10 12:00] VITALS: BP 127/76
--- NOTE | 2019-07-11 16:06 | PATHOLOGY ---
[facility] Accession Number: [id number] . 01 Material submitted: . lymph node - LEFT INGUINAL LYMPH NODE BIOPSY. Modifiers: left, inguinal . 01 Clinical history: . Enlarged lymph node; history of melanoma . 02 Diagnosis: Left inguinal lymph node needle biopsies: - Negative for malignancy. See comment. (JPM:adriana; 07/11/2019) S 07/11/2019 1406 Local . 02 Comment: Sections of the left inguinal lymph node needle biopsy reveal several segments of fibroadipose tissue and a small segment of lymph node showing no evidence of metastatic melanoma. The size of the segment of lymph node is such that I do not know if it is business services representative of the entire lymph node. Correlate clinically. (JPM:adriana; 07/11/2019) . 02 Electronically signed: . Sourav Rodas MD, Pathologist NPI- [id number] . 01 Gross description: . The specimen is received in formalin, labeled "Ab Duran, left inguinal lymph node". Received are several fragments of friable pale burr soft tissue measuring 0.4 x 0.2 x 0.1 cm in aggregate dimensions. The specimen is filtered and entirely submitted in cassette A1. (CAA; 07/10/2019) QAC/QAC 07/10/2019 1602 Local . 02 Pathologist provided ICD-10: R59.9 . 02 CPT . 314329 Specimen Comment: A courtesy copy of this report has been sent to [phone] Specimen Comment: [phone], Specimen Comment: Report sent to ,DR HAN / DR GEORGE Performed at: [address] [place] [address] [address], [place], [place] [id number] MD Ian Arriola MD Phone: [phone] Performed at: [address] [id number] MD Sourav Rodas MD Phone: [phone]
--- NOTE | 2019-07-16 10:39 | RAD ---
Ultrasound-guided biopsy, right thigh lymph node July 10, 2019 Clinical Indication: History of right thigh melanoma. MALIG NEOPLASM OF LOWER EXT W/ANESTHESIA Discussion: The procedure was explained in its entirety to the patient or the patients designated appeals representative by a member of the treatment team, including a discussion of the risks, benefits and commonly accepted alternatives to the procedure, as well as the expected consequences of no therapy whatsoever. Discussion of the risks included, but was not limited to, those that are most frequent and those that are rare but possibly severe or life-threatening, as well as the possibility of unforeseen complications. All elements of maximal sterile barrier technique including the use of a cap, mask, sterile gown, sterile gloves, large sterile sheet, appropriate hand hygiene, and 2% chlorhexidine for cutaneous antisepsis (or acceptable alternative antiseptic per current guidelines) were followed for this procedure. Ultrasound evaluation demonstrates several normal-appearing lymph nodes in the right thigh. One lymph node in the right thigh found to have a slightly thickened cortex, but smaller than on comparison study. Findings were discussed the patient. Decision was made to proceed with biopsy. 1% lidocaine was administered for local anesthesia. Under direct ultrasound guidance 20-gauge core biopsies were obtained of the thickened portion of the lymph nodes in question. Samples were small. Total harmony diameter at this point approximately 4 mm. Samples were placed in formalin and sent to pathology for further evaluation. No immediate complications were identified. Sedation was provided via the anesthesia department. Impression: Ultrasound-guided biopsy, proximal thigh lymph node. Some interval decrease in size of lymph node appears to be present with respect comparison from June 18, 2019.
== END | disposition home or self-care (01) ==
LOC: INTRAD 09:42
PROVIDERS: ATTEND Internal Medicine Hematology & Oncology
DX: R59.1 Generalized enlarged lymph nodes (principal); R79.1 Abnormal coagulation profile; M13.841 Other specified arthritis, right hand; Z88.1 Allergy status to other antibiotic agents; Z88.6 Allergy status to analgesic agent; Z88.8 Allergy status to other drugs, medicaments and biological substances; Z85.820 Personal history of malignant melanoma of skin; Z79.899 Other long term (current) drug therapy; Z90.710 Acquired absence of both cervix and uterus; Z98.890 Other specified postprocedural states
CPT/HCPCS: 36415; 38505; 76942; 85025; 85610; 85730; 88305; J2250; J3010; J3490; J7120

== ENCOUNTER → 2019-09-12 | Outpatient (CLI) | payer OTHER ==
[2019-07-10 12:00] VITALS: BP 127/76
[~2019-09-12] MED LIST changes: -IV RINGERS,LACTATED 1000ML 1,000 ML IV SCH; -KETAMINE HCL IN NACL, ISO-OSM 50 MG/5 ML SYRINGE ONE; -LIDOCAINE 1% PF 2 ML VIAL. ID PRN; -LIDOCAINE WITH 8.4% SOD BICARB 3 ML DISP.SYRIN. INJ ONE; -LIDOCAINE WITH 8.4% SOD BICARB 3 ML DISP.SYRIN. ONE; -MIDAZOLAM HCL/PF 2 MG/2 ML VIAL. ONE; -ONDANSETRON PF 4 MG/2 ML VIAL. IV PRN; -PROCHLORPERAZINE 10 MG/2 ML VIAL. IV PRN; -fentaNYL PF VIAL 100 MCG/2 ML VIAL IV PRN; -fentaNYL PF VIAL 250 MCG/5 ML VIAL ONE
== END | disposition home or self-care (01) ==
LOC: LAB 13:34
PROVIDERS: ATTEND Internal Medicine Gastroenterology
DX: Z11.59 Encounter for screening for other viral diseases (principal)
CPT/HCPCS: C9803; U0003; 36415

== ENCOUNTER → 2019-09-16 | Day surgery (SDC) | payer OTHER ==
[~2019-09-16] MED LIST changes: +IV RINGERS,LACTATED 1000ML 1,000 ML IV ONE; +IV RINGERS,LACTATED 1000ML 1,000 ML IV SCH; +LIDOCAINE 2% PF 5 ML VIAL. ONE; +PROPOFOL 10 MG/ML (20ML) VIAL. IV ONE
[2019-09-16 11:46] VITALS: BP 126/80
--- NOTE | 2019-09-17 17:06 | PATHOLOGY ---
[facility] Accession Number: [id number] . 01 Material submitted: . PART A: small bowel - SMALL BOWEL BIOPSY PART B: stomach - GASTRIC ANTRUM AND BODY BIOPSY. Modifiers: body PART C: esophagus - DISTAL ESOPHAGUS BIOPSY. Modifiers: distal PART D: colon - SIGMOID POLYPS. Modifiers: sigmoid . 01 Clinical history: . GERD/CRCS . 02 Diagnosis: A. Small bowel biopsies: - Focal mild nonspecific duodenitis. . B. Gastric biopsies, gastric body and gastric antrum: - Active chronic gastritis, moderate, with focal Helicobacter organisms identified. . C. Esophageal biopsies, distal esophagus: - Segments of esophagogastric and gastric mucosa showing chronic inflammation. . D. Colon biopsies, sigmoid polyps: - Hyperplastic polyps. (JPM:jocelyne 09/17/2019) [facility] 09/17/2019 1118 Local . 02 Comment: Sections of the small bowel biopsy reveal segments of duodenal and small intestine mucosa. There is focal mucosal congestion. There is a focal mild increase of chronic inflammatory cells with a few admixed neutrophils. Where best oriented, the mucosal villi show no sprue-like changes. . Sections of the gastric biopsy reveal segments of gastric body and gastric antral mucosa showing congestion and focally active moderate chronic inflammation. Properly controlled immunoperoxidase stain for Helicobacter reveals focal Helicobacter organisms, primarily located within the gastric body mucosa. . Sections of the distal esophageal biopsy reveal segments of esophagogastric and gastric mucosa showing mild to moderate chronic inflammation. The squamous esophageal mucosa appears hyperplastic. The findings are consistent with reflux. There is no evidence of Quezada's change, dysplasia, or malignancy. . Sections of the sigmoid colon biopsy reveal two hyperplastic polyps. There are no adenomatous changes or evidence of malignancy. (JPM:jocelyne 09/17/2019) . Special stain performed: Immunoperoxidase for Helicobacter on A1 . . . . 02 Electronically signed: . Sourav Rodas MD, Pathologist NPI- [id number] . 01 Gross description: . A. The specimen is received in formalin, labeled "Inscoe, Ba, small bowel BX" and consists of multiple fragments of burr pink tissue measuring 1.0 x 0.8 x 0.3 cm in aggregate which are entirely submitted in A1. . B. The specimen is received in formalin, labeled "Inscoe, Ab, gastric antrum and body BX" and consists of 3 fragments of pink-burr tissue measuring between 0.2 x 0.2 cm and 0.4 x 0.3 cm which are entirely submitted in B1. . C. The specimen is received in formalin, labeled "Inscoe, Ab, distal esophagus BX" and consists of 3 fragments of pink-burr tissue measuring between 0.2 x 0.2 cm and 0.5 x 0.3 cm which are entirely submitted in C1. . D. The specimen is received in formalin, labeled "Inscoe, Ab, sigmoid polyps" and consists of 3 fragments of pink-burr tissue measuring between 0.3 x 0.2 cm and 0.3 x 0.3 cm which are entirely submitted in D1. (SDY; 09/16/2019) SYU/SYU 09/16/2019 1748 Local . 02 Pathologist provided ICD-10: K29.80, K29.50, K20.9, K63.5 . 02 CPT . 333804, 064943, 267178, 259129, T67169 Specimen Comment: A courtesy copy of this report has been sent to [phone] Specimen Comment: [phone] Specimen Comment: Report sent to / DR GEORGE Performed at: 01 [facility] [address], [place], [place] [id number] MD Ian Arriola MD Phone: [phone] Performed at: 02 [facility] [address] [place], [place] [id number] MD Sourav Rodas MD Phone: [phone]
== END ==
LOC: ENDOS 08:38
PROVIDERS: ATTEND Internal Medicine Gastroenterology
DX: Z12.11 Encounter for screening for malignant neoplasm of colon (principal); K63.5 Polyp of colon; K29.50 Unspecified chronic gastritis without bleeding; K21.0 Gastro-esophageal reflux disease with esophagitis; K29.80 Duodenitis without bleeding; K29.00 Acute gastritis without bleeding; K64.0 First degree hemorrhoids; Z87.39 Personal history of other diseases of the musculoskeletal system and connective tissue; Z90.710 Acquired absence of both cervix and uterus
CPT/HCPCS: 43239; 45380; 88305; 88342; J2704; J3490

== ENCOUNTER → 2019-10-09 | Outpatient (CLI) | payer OTHER ==
[2019-09-16 11:46] VITALS: BP 126/80
[~2019-10-09] MED LIST changes: -IV RINGERS,LACTATED 1000ML 1,000 ML IV ONE; -IV RINGERS,LACTATED 1000ML 1,000 ML IV SCH; -LIDOCAINE 2% PF 5 ML VIAL. ONE; -PROPOFOL 10 MG/ML (20ML) VIAL. IV ONE
[2019-10-09 10:04] LABS: BASO % 1 % (0-3); EOS # 0.1 x10^3/uL (0.0-0.7); EOS % 2 % (0-3); HEMATOCRIT 42.9 % (36.0-47.0); HEMOGLOBIN 14.6 g/dL (12.0-15.5); LYMPH # 1.3 x10^3/uL (1.0-4.8); LYMPH % 35 % (24-48); MEAN CORPUSCULAR HEMOGLOBIN 34 pg (25-35); MEAN CORPUSCULAR HGB CONC 34 g/dL (31-37); MEAN CORPUSCULAR VOLUME 100 fL (79-100); MONO # 0.6 x10^3/uL (0.0-1.1); MONO % 15 % (0-9); NEUT # 1.8 x10^3/uL (1.8-7.7); NEUT % 47 % (31-73); PLATELET COUNT 216 x10^3/uL (140-400); RED BLOOD COUNT 4.28 x10^6/uL (3.50-5.40); RED CELL DISTRIBUTION WIDTH 13.2 % (11.5-14.5); WHITE BLOOD COUNT 3.8 x10^3/uL (4.0-11.0)
[2019-10-09 10:12] LABS: CALCIUM 9.4 mg/dL (8.5-10.1); CREATININE 0.6 mg/dL (0.6-1.0); GFR 104.2; POTASSIUM 4.2 mmol/L (3.5-5.1)
[2019-10-09 10:18] LABS: ALBUMIN 4.4 g/dL (3.4-5.0); DIRECT BILIRUBIN 0.1 mg/dL (0.0-0.2); TOTAL BILIRUBIN 0.3 mg/dL (0.2-1.0); TOTAL PROTEIN 7.9 g/dL (6.4-8.2)
== END | disposition home or self-care (01) ==
LOC: ONCLAB 09:29
PROVIDERS: ATTEND Internal Medicine Hematology & Oncology
DX: C43.71 Malignant melanoma of right lower limb, including hip (principal)
CPT/HCPCS: 36415; 80048; 80076; 83615; 85025

== ENCOUNTER → 2019-10-16 | Outpatient (CLI) | payer OTHER ==
[2019-09-16 11:46] VITALS: BP 126/80
[~2019-10-16] MED LIST changes: +CONTRAST GIVEN. MC PRN; +IOHEXOL 240 MG/ML 50ML VIAL. PO ONE; +IOHEXOL 300 MG/ML 100ML VIAL. IV ONE
--- NOTE | 2019-10-16 13:50 | RAD ---
CT scan of the chest, abdomen and pelvis with contrast 10/16/2019 CLINICAL HISTORY: Metastatic melanoma. TECHNIQUE: After oral and intravenous administration of contrast, contiguous, 5 mm axial sections were obtained through the chest, abdomen and pelvis. 75 cc of Omnipaque 300 were administered intravenously during this examination. One or more of the following individualized dose reduction techniques were utilized for this study: 1. Automated exposure control. 2. Adjustment of the mA and/or kV according to patient size. 3. Use of iterative reconstruction technique. FINDINGS: Comparison study is dated 06/18/2019. A 1.2 cm likely reactive right hilar lymph node is again seen, unchanged. No mediastinal or axillary lymphadenopathy is seen. The heart is normal in size. Atherosclerotic calcification of the thoracic aorta is noted. The thoracic aorta is mildly tortuous but tapers normally. Minimal dependent subsegmental atelectasis involving both lungs. No area of consolidation is seen. No pneumothorax or pleural effusion is noted. No pulmonary mass or nodule is seen. The liver parenchyma has a decreased attenuation consistent with fatty infiltration. No focal abnormality of the liver is seen. The spleen, pancreas, adrenal glands and right kidney are within normal limits. Rounded low-attenuation lesions are seen involving the left kidney which measure 5 mm in size. They likely represent cysts. They are unchanged from the previous examination. No further imaging workup is recommended. Scattered mild atherosclerotic calcification of the abdominal aorta is seen. The abdominal aorta tapers normally. The gallbladder is contracted. No free fluid or free air is seen within the abdomen. There is no evidence of bowel obstruction. No retroperitoneal lymphadenopathy is noted. The appendix is well-visualized and is within normal limits. Images through the pelvis demonstrate the urinary bladder to be contracted. Calcifications are seen within the pelvis consistent with phleboliths. The patient appears to be post hysterectomy. No adnexal mass is seen. No free fluid is noted. No pelvic or inguinal lymphadenopathy is seen. The osseous structures are unchanged. IMPRESSION: No acute abnormality is seen. There is no CT evidence of metastatic disease involving the chest, abdomen or pelvis. Electronically signed by: Navdeep Wise MD (10/16/2019 1:47 PM) [id number]
== END | disposition home or self-care (01) ==
LOC: CT 09:30
PROVIDERS: ATTEND Internal Medicine Hematology & Oncology
DX: J98.11 Atelectasis (principal); Q25.46 Tortuous aortic arch; I70.0 Atherosclerosis of aorta; C43.70 Malignant melanoma of unspecified lower limb, including hip; C77.9 Secondary and unspecified malignant neoplasm of lymph node, unspecified
CPT/HCPCS: 71260; 74177; Q9966; Q9967

== ENCOUNTER → 2019-11-05 | Outpatient (CLI) | payer OTHER ==
[2019-09-16 11:46] VITALS: BP 126/80
[~2019-11-05] MED LIST changes: -CONTRAST GIVEN. MC PRN; -IOHEXOL 240 MG/ML 50ML VIAL. PO ONE; -IOHEXOL 300 MG/ML 100ML VIAL. IV ONE
--- NOTE | 2019-11-05 16:34 | RAD ---
Examination: Ultrasound right groin HISTORY: History of lymphadenopathy COMPARISON: 06/18/2019. Findings/ impression: Ultrasound of the right groin demonstrates few right inguinal lymph nodes with the largest measuring 3.4 cm, unchanged since prior exam. Electronically signed by: Max Lee MD (11/05/2019 4:32 PM) [id number]
== END | disposition home or self-care (01) ==
LOC: US 15:51
PROVIDERS: ATTEND Internal Medicine Hematology & Oncology
DX: R59.0 Localized enlarged lymph nodes (principal)
CPT/HCPCS: 76881

== ENCOUNTER → 2019-12-04 | Outpatient (CLI) | payer OTHER ==
[2019-09-16 11:46] VITALS: BP 126/80
--- NOTE | 2019-12-05 08:32 | RAD ---
EXAM: LEFT HUMERUS 2 VIEWS. HISTORY: Lymphadenopathy, palpable masses. COMPARISON: None. FINDINGS: No fractures are identified. The joint spaces and alignment of the left shoulder and elbow are grossly maintained. No soft tissue mass is identified. IMPRESSION: 1. No osseous or soft tissue lesion is appreciated by radiographs. Electronically signed by: Magan Tamayo MD (12/05/2019 8:29 AM) [id number]
== END | disposition home or self-care (01) ==
LOC: RAD 15:19
PROVIDERS: ATTEND Internal Medicine Hematology & Oncology
DX: R59.0 Localized enlarged lymph nodes (principal)
CPT/HCPCS: 73060

== ENCOUNTER → 2019-12-04 | Outpatient (CLI) | payer OTHER ==
[2019-09-16 11:46] VITALS: BP 126/80
[2019-12-04 14:31] LABS: CALCIUM 9.1 mg/dL (8.5-10.1); CREATININE 0.6 mg/dL (0.6-1.0); GFR 104.2; POTASSIUM 3.8 mmol/L (3.5-5.1)
[2019-12-04 14:34] LABS: BASO # 0.1 x10^3/uL (0.0-0.2); BASO % 1 % (0-3); EOS # 0.1 x10^3/uL (0.0-0.7); EOS % 1 % (0-3); HEMOGLOBIN 13.9 g/dL (12.0-15.5); LYMPH # 1.6 x10^3/uL (1.0-4.8); LYMPH % 28 % (24-48); MEAN CORPUSCULAR HEMOGLOBIN 34 pg (25-35); MEAN CORPUSCULAR HGB CONC 34 g/dL (31-37); MEAN CORPUSCULAR VOLUME 101 fL (79-100); MONO # 0.7 x10^3/uL (0.0-1.1); MONO % 11 % (0-9); NEUT # 3.4 x10^3/uL (1.8-7.7); NEUT % 59 % (31-73); PLATELET COUNT 224 x10^3/uL (140-400); RED BLOOD COUNT 4.04 x10^6/uL (3.50-5.40); RED CELL DISTRIBUTION WIDTH 14.8 % (11.5-14.5); WHITE BLOOD COUNT 5.8 x10^3/uL (4.0-11.0)
[2019-12-04 14:36] LABS: ALBUMIN/GLOBULIN RATIO 1.1 (1.0-1.7); TOTAL BILIRUBIN 0.3 mg/dL (0.2-1.0); TOTAL PROTEIN 7.6 g/dL (6.4-8.2)
== END | disposition home or self-care (01) ==
LOC: ONCLAB 14:13
PROVIDERS: ATTEND Internal Medicine Hematology & Oncology
DX: C43.71 Malignant melanoma of right lower limb, including hip (principal); R59.0 Localized enlarged lymph nodes
CPT/HCPCS: 36415; 80053; 83615; 85025

== ENCOUNTER → 2020-03-20 | Outpatient (CLI) | payer OTHER ==
[2019-09-16 11:46] VITALS: BP 126/80
[~2020-03-20] MED LIST changes: +GADOTERATE 5 MMOL/10ML VIAL. IVP ONE
--- NOTE | 2020-03-20 11:16 | RAD ---
INDICATION: Reason: / Spl. Instructions: / History: COMPARISON: PET from March 20, 2020 FINDINGS: Focused ultrasound images are obtained through the right groin. There are multiple lymph nodes seen in the region of the largest measuring 24 x 28 x 10 mm. There is an additional 12 x 9 x 7 mm and 7 x 5 mm lymph node. IMPRESSION: * Lymph nodes are again seen within the right groin including the previously identified lymph node with mildly prominent cortex. This does not appear significantly changed from prior. Electronically signed by: Jethro Rosales MD (03/20/2020 11:12 AM) [id number]
--- NOTE | 2020-03-20 16:45 | RAD ---
MRI of the Brain without and with Contrast 03/20/2020 Clinical History: Metastatic melanoma. Technique: Unenhanced T1-weighted sagittal and axial and FLAIR, T2-weighted, gradient echo and diffusion-weighted axial images of the brain were obtained. After the intravenous administration of 10 cc of Clariscan, enhanced T1-weighted axial, sagittal and coronal images of the brain were obtained. Findings: Comparison is made to the patient's MRI of the brain dated 11/06/2018. The ventricles and sulci are within normal limits in size and configuration. Patchy and small focal areas of abnormally increased signal intensity are seen within the periventricular and subcortical white matter of both cerebral hemispheres on the FLAIR and T2-weighted images consistent with areas of mild small vessel ischemic disease. These are unchanged. No acute parenchymal abnormality is seen. No abnormal area of contrast enhancement is noted. No extra-axial fluid collection is seen. There is no MRI evidence of acute ischemia/infarction. The paranasal sinuses are essentially clear. There are minimal bilateral mastoid effusions. Normal flow voids are seen within the major vascular structures surrounding the brain parenchyma. Impression: No acute parenchymal abnormality is seen. There is no MRI evidence of metastatic disease involving the brain parenchyma. Electronically signed by: Navdeep Wise MD (03/20/2020 1:14 PM) [id number]
--- NOTE | 2020-03-20 18:33 | RAD ---
EXAM: PET W CT SKULL TO FEET EXAM DATE: 03/20/2020 INDICATION: Melanoma. Subsequent treatment strategy. RADIOPHARMACEUTICAL: 12.7 mCi of F-18 Fluorodeoxyglucose (FDG) I.V. via the left antecubital fossa. TECHNIQUE: Patient weight: 125 pounds. Following at least four-hour fasting, the patient's blood glucose was 82 mg/dl. Approximately 1 hour after administration of FDG, overlapping emission scanning was performed from the top of the head through the feet. A low-dose CT was performed for attenuation correction purposes and anatomic localization. Fused images of PET and CT were reviewed. Any standardized uptake values (SUV) reported are maximum values within a volume region of interest, expressed in gm/ml. COMPARISON: PET CT of 03/29/2019 FINDINGS: PET: No abnormal FDG uptake in the included field of view from the top of the head through the feet. Background uptake in the liver measures 2.[address]: In the head and neck, no intracranial masses, extra-axial fluid collection soft tissue masses or cervical adenopathy is apparent. There is metallic foreign body at the right inferior orbital rim that could reflect postsurgical change. In the chest, bilateral breast implants are present. No mediastinal mass or thoracic adenopathy and no suspicious lung nodules, masses or consolidation. No pleural effusion. In the abdomen and pelvis, dense calcifications in the inferior left hepatic lobe measuring up to 1.5 cm are unchanged. Solid abdominal organs otherwise are unremarkable on noncontrast CT. Bowel shows scattered colonic diverticuli with no findings of acute diverticulitis. No evidence of obstruction, perforation or acute inflammation. The appendix is normal. No ascites, fluid collection or mass is apparent. The uterus is absent. The bladder is unremarkable. Musculoskeletal structures show no soft tissue masses or aggressive appearing bony lesions. No adenopathy. IMPRESSION: No FDG avid residual or recurrent disease. Electronically signed by: Christie Reeves MD (03/20/2020 6:31 PM) [id number]
== END ==
LOC: PETSC 09:04
PROVIDERS: ATTEND Internal Medicine Hematology & Oncology
DX: C43.71 Malignant melanoma of right lower limb, including hip (principal); K57.30 Diverticulosis of large intestine without perforation or abscess without bleeding; R59.0 Localized enlarged lymph nodes; Z90.710 Acquired absence of both cervix and uterus; M25.48 Effusion, other site
CPT/HCPCS: 70553; 76881; 78815; A9552; A9575

== ENCOUNTER → 2020-07-08 | Outpatient (CLI) | payer OTHER ==
[2019-09-16 11:46] VITALS: BP 126/80
[~2020-07-08] MED LIST changes: -GADOTERATE 5 MMOL/10ML VIAL. IVP ONE
--- NOTE | 2020-07-08 17:00 | KCIC ---
XR FOOT_RIGHT 3 VIEWS History: Reason: RIGHT FOOT PAIN / Spl. Instructions: New bump on top of right foot in the center of the tarsal bones. / History: Comparison: None. Technique: 3 views the right foot. Findings: Postsurgical changes of the first ray from osteotomy and bunionectomy. Mild degenerative changes at t he first metatarsophalangeal joint. No fracture or dislocation. No radiopaque mass is identified in t he dorsal soft tissues. Impression: 1. Postsurgical changes from bunionectomy of the first ray. No acute osseous abnormality or dorsal s oft tissue mass is identified. Electronically signed by: Edmond Zambrano MD (07/08/2020 4:58 PM) [facility]
== END ==
LOC: KCIC 13:42
PROVIDERS: ATTEND Family Medicine
DX: M19.071 Primary osteoarthritis, right ankle and foot (principal)
CPT/HCPCS: 73630

== ENCOUNTER → 2020-07-30 | Outpatient (CLI) | payer OTHER ==
[2019-09-16 11:46] VITALS: BP 126/80
[2020-07-30 15:37] LABS: BASO # 0.1 x10^3/uL (0.0-0.2); BASO % 1 % (0-3); EOS # 0.1 x10^3/uL (0.0-0.7); EOS % 1 % (0-3); HEMATOCRIT 40.2 % (36.0-47.0); HEMOGLOBIN 13.8 g/dL (12.0-15.5); LYMPH # 1.5 x10^3/uL (1.0-4.8); LYMPH % 29 % (24-48); MEAN CORPUSCULAR HEMOGLOBIN 34 pg (25-35); MEAN CORPUSCULAR HGB CONC 34 g/dL (31-37); MEAN CORPUSCULAR VOLUME 100 fL (79-100); MONO # 0.5 x10^3/uL (0.0-1.1); MONO % 10 % (0-9); NEUT # 2.9 x10^3/uL (1.8-7.7); NEUT % 58 % (31-73); PLATELET COUNT 202 x10^3/uL (140-400); RED BLOOD COUNT 4.02 x10^6/uL (3.50-5.40); RED CELL DISTRIBUTION WIDTH 13.8 % (11.5-14.5)
[2020-07-30 15:46] LABS: CREATININE 0.7 mg/dL (0.6-1.0); GFR 86.9; POTASSIUM 3.7 mmol/L (3.5-5.1)
[2020-07-30 15:53] LABS: ALBUMIN 4.4 g/dL (3.4-5.0); ALBUMIN/GLOBULIN RATIO 1.3 (1.0-1.7); TOTAL BILIRUBIN 0.3 mg/dL (0.2-1.0); TOTAL PROTEIN 7.7 g/dL (6.4-8.2)
== END ==
LOC: ONCLAB 15:12
PROVIDERS: ATTEND Physician Assistant
DX: R59.0 Localized enlarged lymph nodes (principal)
CPT/HCPCS: 36415; 80053; 85025

== ENCOUNTER → 2020-08-06 | Outpatient (CLI) | payer OTHER ==
[2019-09-16 11:46] VITALS: BP 126/80
--- NOTE | 2020-08-06 09:08 | RAD ---
EXAM: Right inguinal sonogram. HISTORY: Right lower extremity melanoma. COMPARISON: None. FINDINGS: Sonographic imaging of the right inguinal region was performed. There is a prominent inguin al lymph node measuring 3.6 x 1.7 x 1.0 cm. This demonstrates a slightly thickened cortex measuring 4 mm in maximum dimension. This maintains a fatty hilum. There are smaller lymph nodes with benign mor phology within the right inguinal region measuring 1.6 cm and 1.3 cm in long axis. IMPRESSION: 3.6 cm right inguinal lymph node with slightly thickened cortex. This maintains a fatty hilum and may be physiologic or reactive in etiology. However, given a history of right lower extremi ty melanoma, this lymph node remains indeterminant. There are surrounding lymph nodes with benign mor phology. Electronically signed by: Lory Burger MD (08/06/2020 9:05 AM) [id number]
== END ==
LOC: US 08:21
PROVIDERS: ATTEND Internal Medicine Hematology & Oncology
DX: R59.1 Generalized enlarged lymph nodes (principal); Z85.820 Personal history of malignant melanoma of skin
CPT/HCPCS: 76881

== ENCOUNTER 2020-09-04 10:44 | Day surgery (SDC) | payer OTHER ==
[~2020-09-04] VITALS: Ht 165.1 cm; Wt 57.7 kg
[~2020-09-04 10:44] MED LIST changes: -DOCU-150 PO; +DOCU-158 PO; +ESTR0.5T PO; +HYDR12.58 PO; +HYDROmorphone 2 MG/ML VIAL IVP PRN; +IV RINGERS,LACTATED 1000ML 1,000 ML IV SCH; +MORPHINE SULFATE 2 MG/ML VIAL. IVP PRN; +PROCHLORPERAZINE 10 MG/2 ML VIAL. IVP PRN; +SACC250C PO; +fentaNYL PF VIAL 100 MCG/2 ML VIAL IVP PRN
[2020-09-04 11:07] VITALS: BP 128/73
[2020-09-04] MEDS ORDERED: DEXAMETHASONE SOD PHOS 4 MG/ML VIAL ONE (11:17)
[2020-09-04] MEDS ORDERED: ONDANSETRON PF 4 MG/2 ML VIAL. ONE (11:17)
[2020-09-04] MEDS ORDERED: PROPOFOL 10 MG/ML (20ML) VIAL. IV ONE (11:17)
[2020-09-04] MEDS ORDERED: LIDOCAINE 2% PF 5 ML VIAL. ONE (11:17)
[2020-09-04] MEDS ORDERED: fentaNYL PF VIAL 100 MCG/2 ML VIAL ONE ×2 (11:57→14:37)
[2020-09-04] MEDS ORDERED: BUPIVACAINE-EPI 0.5%-1:200000 MPF 30 ML VIAL. ONE (13:25)
[2020-09-04] MEDS ORDERED: BUPIVACAINE-EPI 0.25% 30 ML VIAL KIT. ONE (13:25)
[2020-09-04] MEDS ORDERED: BUPIVACAINE MPF 0.25% 30 ML VIAL. ONE (13:25)
[2020-09-04] MEDS ORDERED: BUPIVACAINE MPF 0.5% 30 ML VIAL. ONE (13:25)
[2020-09-04] MEDS ORDERED: MIDAZOLAM HCL/PF 2 MG/2 ML VIAL. ONE (13:33)
[2020-09-04] MEDS ORDERED: NEOMY/BACITR/POLYMYXIN OINT PACKET. TP ONE ×2 (13:55→14:02)
[2020-09-04] MEDS ORDERED: SEVOFLURANE 16 TO 30 MINUTES. IH ONE (14:03)
[2020-09-04] MEDS: fentaNYL PF VIAL 100 MCG/2 ML VIAL IVP PRN ×2 (14:43→15:18)
[2020-09-04 15:28] VITALS: BP 128/76
--- NOTE | 2020-09-05 22:44 | PDOC4 ---
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 The patient reports a history of ineffectiveness of local anesthesias such as lidocaine and was not willing to try alternative methods of local anesthesia therefore the decision was made to bring her to the OR to excise the lesions. Procedure: Informed consent was taken including discussing risks of bleeding, infection, wound healing issues, incomplete excision, need to remove additional tissue for margin control, post procedure pain. The patient was taken to the OR and placed on the table in the supine position. A field prep for the lateral neck and lateral thigh was performed with Chloroprep which was allowed to thoroughly dry. The areas were prepped. A #15 scalpel was used to excise each lesion. Each lesion was oriented with 3-0 prolene suture and sent to pathology. The incisions were inspected, hemostasis obtained, and the edges were undermined at least 1cm in all directions. The wound was closed with 3-0 Prolene interrupted horizontal sutures. A bandage was applied. The patient tolerated the procedure well. The neck lesion measured 3mm in diameter. The thigh lesion measured 4mm in diameter. Each lesion with margins was marked and measured at 2.0cm x 1.0cm prior to excision. LORI LIRIANO MD September 05, 2020 22:44
--- NOTE | 2020-09-08 16:10 | PATHOLOGY ---
[facility] Accession Number: [id number] . 01 Material submitted: . PART A: thigh - THIGH LEFT SKIN LESION. Modifiers: left PART B: neck - LEFT NECK SKIN LESION. Modifiers: left . 01 Clinical history: . BASAL CELL CARCINOMA OF NECK AND THIGH EXCISION OF SKIN LESIONS FOR A- SHORT STITCH SUPERIOR,LONG STITCH LATERAL FOR B- SHORT STITCH SUPERIOR,LONG STITCH LATERAL . 02 Diagnosis: A. Skin and subcutaneous tissue, left thigh skin lesion excision: - Superficial basal cell carcinoma, excised. . B. Skin and subcutaneous tissue, left neck skin lesion excision: - Intradermal melanocytic nevus, excised. . (JPM:felicita; 09/07/2020) [facility]BR 09/07/2020 1741 Local . 02 Electronically signed: . Sourav Rodas MD, Pathologist NPI- [id number] . 01 Gross description: . A. Received in formalin labeled "Ab Duran, thigh left skin lesion short stitch superior long stitch lateral" is an oriented ellipse of skin measuring 1.7 x 1.0 x 0.3 cm. There is a short suture at one tip indicating superior (12:00) and a long suture on one long side indicating lateral (3:00). The skin surface displays no discrete lesions. The margins are inked as follows: 12:00 to 3:00 is yellow, 3:00 to 6:00 is blue, 6:00 to 9:00 to 12:00 is black. The specimen is sectioned into 6 pieces. The specimen is submitted entirely in A1-A2, with the tips in the last cassette. . B. Received in formalin labeled "Ab Duran, left neck skin lesion short stitch superior long stitch lateral" is an oriented ellipse of skin measuring 2.0 x 0.8 x 0.2 cm. There is a short suture at one tip indicating superior (12:00) and a long suture on one long side indicating lateral (3:00). The skin surface displays no discrete lesions. The margins are inked as follows: 12:00 to 3:00 is yellow, 3:00 to 6:00 is blue, 6:00 to 9:00 to 12:00 is black. The specimen is sectioned into 7 pieces. The specimen is submitted entirely in B1-B2, with the tips in the last cassette. [place] [place] [facility] 09/07/2020 1740 Local . 02 Pathologist provided ICD-10: C44.719, D22.4 . 02 CPT . 655594, 777487 Specimen Comment: A courtesy copy of this report has been sent to [phone], [phone] Specimen Comment: [id number] Specimen Comment: Report sent to / DR GEORGE Performed at: 01 [facility] [address], [place] [id number] MD Kieran Cortez MD Phone: [phone] Performed at: 02 [facility] [address], [place] [id number] MD Sourav Rodas MD Phone: [phone]
== END 2020-09-04 16:00 | disposition home or self-care (01) ==
LOC: SURG 10:44
PROVIDERS: ATTEND Plastic Surgery
DX: L98.8 Other specified disorders of the skin and subcutaneous tissue (principal); C44.719 Basal cell carcinoma of skin of left lower limb, including hip; D22.4 Melanocytic nevi of scalp and neck; C44.41 Basal cell carcinoma of skin of scalp and neck; C44.519 Basal cell carcinoma of skin of other part of trunk; K21.9 Gastro-esophageal reflux disease without esophagitis; M19.90 Unspecified osteoarthritis, unspecified site; Z85.828 Personal history of other malignant neoplasm of skin; Z90.710 Acquired absence of both cervix and uterus; Z98.890 Other specified postprocedural states; Z79.899 Other long term (current) drug therapy; Z20.822 Contact with and (suspected) exposure to COVID-19; Z88.1 Allergy status to other antibiotic agents; Z88.2 Allergy status to sulfonamides; Z88.8 Allergy status to other drugs, medicaments and biological substances
CPT/HCPCS: 11602; 11622; 87426; 88305; A4930; A6219; J1100; J2250; J2405; J2704; J3010; J3490

== ENCOUNTER → 2020-10-23 | Outpatient (CLI) | payer OTHER ==
[~2020-10-23] MED LIST changes: +GADOTERATE 5 MMOL/10ML VIAL. IVP ONE; -HYDROmorphone 2 MG/ML VIAL IVP PRN; -IV RINGERS,LACTATED 1000ML 1,000 ML IV SCH; -MORPHINE SULFATE 2 MG/ML VIAL. IVP PRN; -PROCHLORPERAZINE 10 MG/2 ML VIAL. IVP PRN; -fentaNYL PF VIAL 100 MCG/2 ML VIAL IVP PRN
--- NOTE | 2020-10-23 14:20 | RAD ---
MRI of the Brain without and with Contrast 10/23/2020 Clinical History: History of metastatic melanoma.. Technique: Unenhanced T1-weighted sagittal and axial and FLAIR, T2-weighted, susceptibility weighted and diffusion-weighted axial images of the brain were obtained. After the intravenous administration of 10 cc of Clariscan, enhanced T1-weighted axial, sagittal and coronal images of the brain were obta ined. Findings: Comparison study is dated 03/20/2020. The ventricles and sulci are within normal limits in size and configuration. Patchy and small focal a reas of increased signal intensity are seen within the periventricular and subcortical white matter o f both cerebral hemispheres on the FLAIR and T2-weighted images consistent with areas of mild small v essel ischemic disease. These are unchanged. No acute parenchymal abnormality is seen. No extra-axial fluid collection is noted. No area of abnorm al contrast enhancement is noted. There is no MRI evidence of acute ischemia/infarction. The paranasal sinuses are essentially clear. Normal flow voids are seen within the major vascular str uctures surrounding the brain parenchyma. IMPRESSION: No acute parenchymal abnormality is seen. There is no MRI evidence of metastatic disease involving the brain parenchyma. Electronically signed by: Navdeep Wise MD (10/23/2020 2:18 PM) [id number]
--- NOTE | 2020-10-23 16:17 | RAD ---
PQRS Compliance Statement: One or more of the following individualized dose reduction techniques were utilized for this examinat ion: 1. Automated exposure control 2. Adjustment of the mA and/or kV according to patient size 3. Use of iterative reconstruction technique PET ONCOLOGY STUDY F-18 fluorodeoxyglucose: INDICATION: Melanoma; restaging COMPARISON: PET/CT 03/20/2020 TECHNIQUE: The patient (weight 125 lb; height 5 ft 5 in) was injected intravenously in the right antecubital fos sa with 15.1 mCi of R-68-[id number] (FDG). After waiting for localization of tracer with bloo d glucose of 76 mg/dL and injection time of 1048 hours, a series of bed positions were acquired and c orrelated the whole body. The data was reconstructed into transverse, coronal, and sagittal sections as well as a three-dimensional volume-rendered display. CT imaging was performed for attenuation correction and anatomic localization only. FINDINGS: Imaging of the visualized portion of the head and neck is unremarkable and shows no discrete abnormal FDG activity to suggest an FDG-avid malignant process. No FDG avid thoracic, abdominal or pelvic lymphadenopathy. Bilateral breast prosthesis. Extravasation noted at the injection site within the right upper extremity. Left inguinal lymph node measures 7 mm by short axis without significant FDG activity. Review of bone window imaging (in conjunction with PET imaging), shows no evidence of FDG-avid osseou s metastasis. No suspicious FDG activity identified within the legs. Blood pool max SUV: 2.3 Background Liver max SUV: 2.5 IMPRESSION: No findings to suggest recurrent or residual FDG avid malignancy. Left inguinal lymph node is not significantly FDG avid. Activity appears less than that of blood pool . Findings favor treated disease or reactive changes. If there is persistent clinical concern, 3 raymond h follow-up ultrasound could be of benefit to assess stability. Electronically signed by: Shana Pedro MD (10/23/2020 4:15 PM) [id number]
== END ==
LOC: PETSC 10:03
PROVIDERS: ATTEND Physician Assistant
DX: C43.71 Malignant melanoma of right lower limb, including hip (principal); R59.0 Localized enlarged lymph nodes; Z98.82 Breast implant status
CPT/HCPCS: 70553; 78816; A9552; A9575

== ENCOUNTER → 2020-10-29 | Outpatient (CLI) | payer OTHER ==
[~2020-10-29] MED LIST changes: -GADOTERATE 5 MMOL/10ML VIAL. IVP ONE
[2020-10-29 13:59] LABS: BASO % 1 % (0-3); EOS # 0.1 x10^3/uL (0.0-0.7); EOS % 2 % (0-3); HEMOGLOBIN 14.7 g/dL (12.0-15.5); LYMPH # 1.2 x10^3/uL (1.0-4.8); LYMPH % 30 % (24-48); MEAN CORPUSCULAR HEMOGLOBIN 34 pg (25-35); MEAN CORPUSCULAR HGB CONC 34 g/dL (31-37); MEAN CORPUSCULAR VOLUME 99 fL (79-100); MONO # 0.5 x10^3/uL (0.0-1.1); MONO % 12 % (0-9); NEUT # 2.3 x10^3/uL (1.8-7.7); NEUT % 56 % (31-73); PLATELET COUNT 225 x10^3/uL (140-400); RED BLOOD COUNT 4.36 x10^6/uL (3.50-5.40); RED CELL DISTRIBUTION WIDTH 13.5 % (11.5-14.5); WHITE BLOOD COUNT 4.2 x10^3/uL (4.0-11.0)
[2020-10-29 14:07] LABS: CALCIUM 9.6 mg/dL (8.5-10.1); CREATININE 0.6 mg/dL (0.6-1.0); GFR 103.8; POTASSIUM 3.5 mmol/L (3.5-5.1)
[2020-10-29 14:15] LABS: ALBUMIN 4.5 g/dL (3.4-5.0); ALBUMIN/GLOBULIN RATIO 1.3 (1.0-1.7); TOTAL BILIRUBIN 0.4 mg/dL (0.2-1.0); TOTAL PROTEIN 8.1 g/dL (6.4-8.2)
== END ==
LOC: ONCLAB 13:20
PROVIDERS: ATTEND Physician Assistant
DX: R59.0 Localized enlarged lymph nodes (principal)
CPT/HCPCS: 36415; 80053; 83615; 85025

== ENCOUNTER → 2020-11-10 | Outpatient (CLI) | payer OTHER ==
--- NOTE | 2020-11-10 14:24 | RAD ---
US DPLX VENOUS EXTREMITY LOWER LT History: Reason: lt leg pain / Spl. Instructions: / History: Comparison: None. Discussion: Multiple longitudinal and transverse high resolution real-time images of the venous system of left lo wer extremity were obtained with color and Doppler sampling. The common femoral, superficial femoral, popliteal and proximal calf veins are all patent and demonstrate normal flow and compressibility. No rmal respiratory phasicity and augmentation is present. Impression: 1. No evidence of deep vein thrombosis. Electronically signed by: Lele Blevins DO (11/10/2020 2:21 PM) [id number]
--- NOTE | 2020-11-10 16:24 | RAD ---
Examination: CT left tibia and fibula without contrast HISTORY: History of calf pain COMPARISON: None available Technique: Axial CT images of the left calf was performed without contrast and coronal sagittal refor mats are performed Exposure: One or more of the following individualized dose reduction techniques were utilized for thi s examination: 1. Automated exposure control 2. Adjustment of the mA and/or kV according to patient size 3. Use of iterative reconstruction technique FINDINGS: The alignment of the tibia and fibula grossly appears unremarkable. Small knee joint effusion. The al ignment of the tibia and fibula grossly appears unremarkable. There is no acute fracture identified. The muscle bulk grossly appears unremarkable. IMPRESSION: 1. No acute osseous findings. 2. Small knee joint effusion. Electronically signed by: Max Lee MD (11/10/2020 4:22 PM) [id number]
== END ==
LOC: CT 13:01
PROVIDERS: ATTEND Family Medicine
DX: I82.409 Acute embolism and thrombosis of unspecified deep veins of unspecified lower extremity (principal); M25.462 Effusion, left knee
CPT/HCPCS: 73700; 93971

== ENCOUNTER → 2021-04-30 | Outpatient (CLI) | payer OTHER ==
[~2021-04-30] MED LIST changes: +GADOTERATE 5 MMOL/10ML VIAL. IVP ONE
--- NOTE | 2021-04-30 09:56 | RAD ---
History: Multiplanar, multisequence pre and post contrast MR images of the brain were performed. Axial T1, T2, FLAIR, and sagittal T1 supplemented with gadolinium- enhanced coronal and axial T1-weig hted sequences of the brain were obtained. Echoplanar, diffusion-weighted, and ADC images were also performed. Comparison: MR brain from 10/23/2020 dating back to 03/20/2020. Findings: No diffusion abnormality is noted in the brain. The supra- and infratentorial brain parenchyma shows normal huggins-white matter differentiation and signal. No abnormal signal, cerebral edema, or midline shift is seen. There is no intraparenchymal or extra-axial bleed, hematoma or fluid collection. No blood byproducts are noted on susceptibility weighted images. Similar patchy areas of increased FLAIR /T2 signal intensity within the periventricular and subcortical white matter of both cerebral hemisph eres. No abnormal enhancement is noted after contrast injection. The major intracranial dural venous sinuses are patent. Flow voids are identified in the major intracranial vessels. The ventricular system is symmetric wit hout hydrocephalus. The basilar cisterns are patent. The pituitary, infundibulum, optic chiasm, and sella are normal. The extracranial soft tissues, paranasal sinuses, and orbits appear unremarkable. Impression: No acute parenchymal abnormality identified. There is no MRI evidence of metastatic disease involving the brain parenchyma. Electronically signed by: Brennan Padilla DO (04/30/2021 9:54 AM) [facility]
--- NOTE | 2021-04-30 12:25 | RAD ---
EXAM: Dual modality PET-CT Scan DATE: 04/30/2021 RADIOPHARMACEUTICAL: 13 mCi F-18 fluorodeoxyglucose (FDG) IV. CLINICAL HISTORY: Right lower extremity metastatic melanoma. COMPARISON: Brain MRI dated 04/30/2021. PET/CT dated 10/23/2020. TECHNIQUE: Approximately 45 minutes after tracer administration, routine, attenuation-corrected Posit venkata Emission Tomography (PET) images were obtained of the entire body. Tomographic reconstructions ar e reviewed in coronal, transaxial and sagittal planes. Non-contrast CT imaging was performed for att enuation correction and localization purposes only. These images do not constitute a diagnostic-qual ity CT examination and were not used to diagnose disease independently of the PET images. The blood glucose level was 80 mg/dL at the time of FDG administration. *One or more of the following individualized dose reduction techniques were utilized for this examina tion: 1. Automated exposure control. 2. Adjustment of the mA and/or kV according to patient size. 3. Use of iterative reconstruction technique. FINDINGS: There is no abnormal radiotracer activity to suggest recurrent or residual malignancy. Ther e is slight asymmetric radiotracer activity within the medial left calf due to physiologic muscular a ctivity. There is also physiologic radiotracer activity within the bowel and renal collecting system. No lymph node with significant radiotracer activity above the blood pool is seen. The CT portion of the exam demonstrate normal heart size and aortic caliber. There is no pathological ly enlarged mediastinal or hilar lymph node. There is no infiltrate, pleural effusion, pneumothorax o r suspicious pulmonary nodule. There are implanted breast prostheses. No hepatic lesion is seen. There are stable dense calcifications within the shalini hepatis. The gallbl adder, pancreas, spleen and adrenal glands are unremarkable. There is a small amount of contrast with in the renal collecting system due to a brain MRI obtained on the same date. There is no appendicitis. There is no bowel obstruction. There are a few sigmoid diverticula. The светлана dder is unremarkable. The uterus is absent. There is no adnexal lesion. The aorta is normal in calibe r. There is no mesenteric or retroperitoneal lymphadenopathy. There is no inguinal lymphadenopathy. The brain is unremarkable. The paranasal sinuses mastoid air cells are unremarkable. There is no neck lymphadenopathy. There are degenerative changes involving the spine. There is no suspicious osseous lesion. The images of the lower extremity demonstrate no suspicious osseous lesion or lymphadenopathy. There are osteotomy changes involving the right first metatarsal and proximal phalanx. IMPRESSION: No evidence of recurrent or residual malignancy. Electronically signed by: Lory Burger MD (04/30/2021 12:23 PM) [id number]
== END ==
LOC: MRI 08:03
PROVIDERS: ATTEND Physician Assistant
DX: C43.71 Malignant melanoma of right lower limb, including hip (principal); K57.30 Diverticulosis of large intestine without perforation or abscess without bleeding; R59.0 Localized enlarged lymph nodes
CPT/HCPCS: 70553; 78815; A9552; A9575

== ENCOUNTER → 2021-05-13 | Outpatient (CLI) | payer OTHER ==
[~2021-05-13] MED LIST changes: -GADOTERATE 5 MMOL/10ML VIAL. IVP ONE
--- NOTE | 2021-05-13 08:10 | RAD ---
INDICATION: Reason: melanoma of lower limb / Spl. Instructions: / History: COMPARISON: PET from April 30, 2021 FINDINGS: Focused ultrasound images are obtained of the right groin. Within the right groin there is a prominent lymph node identified with the largest measuring 30 x 10 mm. There is a couple of additional 1's measuring 12 x 5 and 14 x 6 mm which is not enlarged.. IMPRESSION: * Prominent lymph node within the right groin. Could be reactive in nature but follow-up could be o btained to ensure this does not increase to exclude neoplastic involvement given the patient's histor y. Electronically signed by: Jethro Rosales MD (05/13/2021 8:07 AM) [id number]
== END ==
LOC: US 07:45
PROVIDERS: ATTEND Internal Medicine Hematology & Oncology
DX: C43.71 Malignant melanoma of right lower limb, including hip (principal); I89.8 Other specified noninfective disorders of lymphatic vessels and lymph nodes
CPT/HCPCS: 76881